=== PATIENT | female | born 1960 | race American Indian/Alaskan Native ===

== ENCOUNTER 2016-11-13 07:45 | Outpatient (CLI) | payer OTHER ==
[2016-11-13] MEDS ORDERED: FLUSH HEPARIN IV ONE (08:23)
--- NOTE | 2016-11-13 11:53 | Nuclear Medicine Report ---
NUCLEAR MEDICINE MUGA GATED CARDIAC SCAN History: Cardiomyopathy. Technique: Planar imaging with calculation of cardiac ejection fraction following 20 mCi of technetium 99m UltraTag. First-pass technique was utilized. Findings: Planar images demonstrate no evidence for wall motion abnormality. There does appear to be mild global hypokinesis. Heart rate measures 72 beats per minute. Cardiac ejection fraction measures 33.1% Impression: The cardiac ejection fraction measures 33.1%.
== END 2016-11-13 07:46 | disposition home or self-care (01) ==
LOC: NM 07:45
PROVIDERS: ATTEND Internal Medicine Cardiovascular Disease
DX: I42.8 Other cardiomyopathies (principal)
CPT/HCPCS: 78472; A9560; J1642

== ENCOUNTER 2016-11-28 12:17 | Outpatient (CLI) | payer OTHER ==
--- NOTE | 2016-11-29 08:32 | XRay Report ---
CHEST X-RAY, 2 VIEWS: HISTORY: Bronchitis, cough. FINDINGS: Previous cardiac valve replacement and mild cardiomegaly are unchanged since 06/10/13. The mediastinal contour is within normal limits, otherwise. The lungs are clear. No pleural effusion or pneumothorax. Normal bony thorax. IMPRESSION: Mild cardiomegaly. Lungs clear. No change since 2012.
== END 2016-11-28 12:18 | disposition home or self-care (01) ==
LOC: XRAY 12:17
PROVIDERS: ATTEND Family Medicine
DX: J40 Bronchitis, not specified as acute or chronic (principal); I51.7 Cardiomegaly
CPT/HCPCS: 71020

== ENCOUNTER 2016-11-29 09:43 | Outpatient (CLI) | payer OTHER ==
--- NOTE | 2016-11-29 10:36 | Mammography Report ---
BILATERAL MAMMOGRAM with CAD: HISTORY: Cancer screening. Comparison study is dated August 21, 2014. FINDINGS: The breast tissue is heterogeneously dense, which could obscure detection of small masses (approximately 50%-75% glandular). No mass, distortion, suspicious calcification, or skin change is seen. IMPRESSION: Negative mammogram. There is no mammographic evidence of malignancy. RECOMMENDATION: Follow-up per ACS guidelines. BI-RADS CATEGORY: 1 = Negative ACR BI-RADS MAMMOGRAPHIC CODES: 0 = Needs additional imaging evaluation; 1 = Negative; 2 = Benign; 3 = Probably benign; 4 = Suspicious; 5 = Malignant; 6 = Known biopsy-proven malignancy COMMENT: 1. Dense breast tissue, i.e., adenosis, fibrocystic changes, etc., may obscure an underlying neoplasm. 2. Approximately 10% of cancers are not detected with mammography. 3. A negative mammography report should not delay biopsy if a clinically suspicious mass is present. COMMENT: Patient follow-up letters are generated in [facility] [employer].
== END 2016-11-29 09:44 | disposition home or self-care (01) ==
LOC: MAMMO 09:43
PROVIDERS: ATTEND Internal Medicine
DX: Z12.31 Encounter for screening mammogram for malignant neoplasm of breast (principal)
CPT/HCPCS: 77067; G0202

== ENCOUNTER 2019-04-28 08:10 | Outpatient (CLI) | payer OTHER ==
--- NOTE | 2019-04-28 09:46 | Ultrasound Report ---
ULTRASOUND THYROID INDICATION / CLINICAL INFORMATION: ACQUIRED HYPOTHYOIDSM. Goiter, thyroid nodules COMPARISON: 05/29/2014 FINDINGS: RIGHT LOBE: Size = 4.9 x 1.4 x 1.6 cm. - Echogenicity: Normal. - Vascularity: Normal. - Nodules < 1 cm: A 0.4 cm cyst is noted at the inferior pole of the right lobe. - Nodules >= 1 cm or Suspicious Nodules: A 0.9 isoechoic nodule is identified near the inferior pole which is unchanged. LEFT LOBE: Size = 4.8 x 2.0 x 3.1 cm. - Echogenicity: Normal. - Vascularity: Normal. - Nodules < 1 cm: None. - Nodules >= 1 cm or Suspicious Nodules: There are 4 nodules scattered throughout the left lobe measu ring greater than 1 cm. The dominant nodule measures 2.3 x 1.5 x 1.7 cm near the inferior pole. - NODULE # 1 -- Location: lower -- Size: 2.3 x 1.5 x 1.7 cm -- Composition: Solid = 2 points -- Echogenicity: Hypoechoic = 2 points -- Shape: Xfoik-krgx-jizy = 0 points -- Margin: Ill-defined = 0 points -- Echogenic Foci: None = 0 points -- Additional Findings: None. -- ACR TI-RADS Score = 4. -- ACR TI-RADS Category = TR-4 (4-6 points). ISTHMUS: No significant abnormality. Thickness = 0.5 cm. - Nodules < 1 cm: None. - Nodules >= 1 cm or Suspicious Nodules: A 2.0 x 1.3 x 2.0 cm nodule is identified on the left side - NODULE # 1 -- Location: isthmus -- Size: 2.0 x 1.3 x 2.0 cm -- Composition: Solid = 2 points -- Echogenicity: Hypoechoic = 2 points -- Shape: Cdskh-ifnv-xsta = 0 points -- Margin: Ill-defined = 0 points -- Echogenic Foci: None = 0 points -- Additional Findings: None. -- ACR TI-RADS Score = 4. -- ACR TI-RADS Category = TR-4 (4-6 points). LYMPH NODES: No abnormal lymph nodes. PARATHYROID GLANDS: No abnormal parathyroid gland. ADDITIONAL FINDINGS: None. IMPRESSION: Bilateral thyroid nodules as outlined above, left greater than right. No overwhelming change is appre ciated since 05/29/2014. There may be minimal interval increase in the left thyroid nodule since the pr evious exam. Note: Nodule size based on mean (average) size of 3 dimensions. Note: Nodules < 1 cm do not typically require follow-up or FNA unless there are suspicious features ( SARA, 2015) ACR TI-RADS Thyroid Nodule Recommendations TI-RADS 1 (0 points) -- Benign. No FNA or follow-up. TI-RADS 2 (1-2 points) -- Not suspicious. No FNA or follow-up. TI-RADS 3 (3 points) -- Mildly suspicious. Follow up in 1 year if 1.5 cm. FNA if 2.5 cm. TI-RADS 4 (4-6 points) -- Moderately suspicious. Follow up in 1 year if 1.0 cm. FNA if 1.5 cm. TI-RADS 5 (7+ points) -- Highly suspicious. Follow up in 1 year if 0.5 cm. FNA if 1.0 cm. Signer Name: Ranjan Stephen Jr, MD Signed: 04/28/2019 9:42 AM Workstation Name: [id number]
--- NOTE | 2019-04-28 09:49 | Mammography Report ---
BILATERAL DIGITAL SCREENING MAMMOGRAMS WITH CAD INDICATION: Screening. COMPARISONS: 11/29/2016 FINDINGS: Craniocaudal and mediolateral oblique views of both breasts were obtained using 2-D digital acquisition. The breast tissue is heterogeneously dense, which may obscure small masses. A right upper posterior asymmetry on the MLO view requires additional imaging. No architectural disto rtion or suspicious calcifications. The left breast is negative. In addition to standard review, the examination was analyzed for possible abnormalities using a compu ter-assisted detection device (iCAD). IMPRESSION: Right asymmetry requiring additional imaging evaluation. Recommend recall for right exaggerated CC an d spot compression MLO views and right breast ultrasound. BI-RADS CATEGORY 0: INCOMPLETE - NEED ADDITIONAL IMAGING EVALUATION AND/OR PRIOR MAMMOGRAMS FOR COMP ARISON Information is entered into a reminder system for a target due date for the next mammogram. The resul ts and recommendations were sent to the patient by mail. Signer Name: Prasanna Castillo MD Signed: 04/28/2019 9:45 AM Workstation Name: [id number]
== END 2019-04-28 08:11 | disposition home or self-care (01) ==
LOC: MAMMO 08:10
PROVIDERS: ATTEND Family Medicine
DX: Z12.31 Encounter for screening mammogram for malignant neoplasm of breast (principal); E04.2 Nontoxic multinodular goiter; I10 Essential (primary) hypertension; E78.00 Pure hypercholesterolemia, unspecified; K21.9 Gastro-esophageal reflux disease without esophagitis
CPT/HCPCS: 76536; 77067

== ENCOUNTER 2019-05-06 08:36 | Outpatient (CLI) | payer OTHER ==
--- NOTE | 2019-05-06 10:46 | Ultrasound Report ---
RIGHT DIGITAL DIAGNOSTIC MAMMOGRAM 05/06/2019 RIGHT BREAST ULTRASOUND INDICATION: Recall for a mammographic asymmetry identified on the MLO view. TECHNIQUE: Digital right mammographic imaging was performed and included exaggerated CC and spot com pression MLO views. COMPARISON: 04/28/2019 FINDINGS: Breast Density: The breasts are heterogeneously dense, which may obscure small masses. Near complete effacement of asymmetry on the spot image. The exaggerated cc view is negative. Ultrasound Findings: Complete sonographic evlauation of all 4 quadrants and retroareolar region was p erformed. No mass or shadowing to correlate with the mammographic density. A single benign intramam scott lymph node at 10:00 11 cm from the nipple measures 1 cm. IMPRESSION: BI-RADS Category 1: Negative. Recommend routine screening mammography in one year. A "normal" or negative report should not discourage follow up or biopsy of a clinically significant f inding. A written summary of these findings will be mailed to the patient. The patient will be entered into a mammography reporting system which will generate a reminder letter for the patient's next appointmen t at the appropriate interval. FURTHER INFORMATION: According to the [employer], yearly mammograms are recommend ed starting at age 40 and continuing as long as a woman is in good health. Breast MRI is recommended for women with an approximately 20-25% or greater lifetime risk of breast cancer, including women wi th a strong family history of breast or ovarian cancer and women who have been treated for Hodgkin's disease. Signer Name: Prasanna Castillo MD Signed: 05/06/2019 10:41 AM Workstation Name: [id number]
--- NOTE | 2019-05-06 11:03 | Mammography Report ---
RIGHT DIGITAL DIAGNOSTIC MAMMOGRAM 05/06/2019 RIGHT BREAST ULTRASOUND INDICATION: Recall for a mammographic asymmetry identified on the MLO view. TECHNIQUE: Digital right mammographic imaging was performed and included exaggerated CC and spot comp ression MLO views. COMPARISON: 04/28/2019 FINDINGS: Breast Density: The breasts are heterogeneously dense, which may obscure small masses. Near complete effacement of asymmetry on the spot image. The exaggerated cc view is negative. Ultrasound Findings: Complete sonographic evlauation of all 4 quadrants and retroareolar region was p erformed. No mass or shadowing to correlate with the mammographic density. A single benign intramamma ry lymph node at 10:00 11 cm from the nipple measures 1 cm. IMPRESSION: BI-RADS Category 1: Negative. Recommend routine screening mammography in one year. A "normal" or negative report should not discourage follow up or biopsy of a clinically significant f inding. A written summary of these findings will be mailed to the patient. The patient will be entered into a mammography reporting system which will generate a reminder letter for the patient's next appointmen t at the appropriate interval. FURTHER INFORMATION: According to the [employer], yearly mammograms are recommende d starting at age 40 and continuing as long as a woman is in good health. Breast MRI is recommended f or women with an approximately 20-25% or greater lifetime risk of breast cancer, including women with a strong family history of breast or ovarian cancer and women who have been treated for Hodgkin's di sease. Signer Name: Prasanna Castillo MD Signed: 05/06/2019 10:59 AM Workstation Name: [id number]
== END 2019-05-06 08:37 | disposition home or self-care (01) ==
LOC: MAMMO 08:36
PROVIDERS: ATTEND Internal Medicine
DX: N64.59 Other signs and symptoms in breast (principal); E78.00 Pure hypercholesterolemia, unspecified; I10 Essential (primary) hypertension; K21.9 Gastro-esophageal reflux disease without esophagitis